=== PATIENT | male | born 1990 | race Two or more races ===

== ENCOUNTER 2017-07-23 08:54 | Emergency (ER) | payer BC ==
[~2017-07-23] VITALS: Ht 172.7 cm; Wt 73.5 kg
[2017-07-23 09:24] VITALS: BP 105/62
[2017-07-23] MEDS ORDERED: IBUPROFEN 800 MG TAB PO ONE (10:15)
== END 2017-07-23 10:27 | disposition home or self-care (01) ==
LOC: ER 08:54
DX: M76.62 Achilles tendinitis, left leg (principal); X58.XXXA Exposure to other specified factors, initial encounter; Y93.67 Activity, basketball; Y99.8 Other external cause status; Y92.89 Other specified places as the place of occurrence of the external cause
CPT/HCPCS: 29515; 73610